=== PATIENT | male | born 1985 | race Caucasian/White ===

== ENCOUNTER 2017-10-19 16:07 | Emergency (ER) | payer MEDICAID ==
--- NOTE | 2017-10-19 17:31 | EDPHY ---
H & P Time Seen by Provider: 10/19/17 17:12 HPI/ROS: Chief complaint: Right ear pain with decreased hearing History of present illness: This is a 31-year-old male who presents to the emergency department reporting right ear pain with decreased hearing. He reports the onset of pain approximately day ago. Has been progressively worsening today. As the pain is worsened his hearing is decreased. He states prior to the onset of the ear pain he had cold symptoms although he feels like those have resolved. He denies other associated signs or symptoms including no discharge from the ear, no headache, no dizziness, no lightheadedness, no vertigo. Review of systems: 10 point review of systems was obtained and other than described above was negative Smoking Status: Never smoked Physical Exam: General Appearance: Alert and no distress. Eyes: Pupils equal and round no injection. ENT: Right tympanic membrane is erythematous and edematous, loss of normal anatomical structures. No evidence of perforation. Left tympanic membrane unremarkable. Hearing does appear to be decreased in the right ear. External auditory canals, external ears and surrounding soft tissue including over the mastoids are unremarkable. Nasopharynx is not injected. There is no rhinorrhea. Oropharynx is mildly injected. There is no edema. There is no exudate. There is no asymmetry. The uvula is midline. No elevation of the tongue. There is no hoarseness, no drooling, no trismus, no stridor. Respiratory: Chest is non tender, lungs are clear to auscultation. Cardiac: regular rate and rhythm Musculoskeletal: Neck is supple and non tender. Extremities have full range of motion and are non tender. Skin: No rashes or lesions. Neurological: Alert and oriented x4. Cranial nerves 2-12 grossly intact. Strength and sensation intact and symmetrical. Normal gait. Constitutional: Initial Vital Signs Temperature (C) 37.0 C 10/19/17 16:27 Heart Rate 73 10/19/17 16:27 Respiratory Rate 16 10/19/17 16:27 O2 Sat (%) 97 10/19/17 16:27 O2 Delivery Mode Room Air Allergies/Adverse Reactions: No Known Allergies Allergy (Unverified 10/19/17 16:27) Home Medications: Medication Instructions Recorded Amoxicillin Trihydrate [Amoxil] 500 mg PO TID 10 Days cap 10/19/17 MDM/Departure - [facility] ED Course/Re-evaluation: Patient seen under the supervision of my primary supervising physician Dr. Qiana Lundy. Patient presents for right ear pain and hearing loss. He appears to have an otitis media. No evidence of complications such as TM perforation or mastoiditis. Patient started on amoxicillin. He is referred to ENT and asked to arrange a close follow-up tomorrow. Home care is discussed. Return precautions are given. Differential Diagnosis: Included but not limited to otitis media, tympanic membrane perforation, otitis externa, labyrinthitis, BPPV, Meniere's - Depart Disposition: Home, Routine, Self-Care Clinical Impression: Otitis media Qualifiers: Otitis media type: unspecified Chronicity: acute Qualified Code(s): H66.90 - Otitis media, unspecified, unspecified ear Condition: Good Instructions: Ear Infection (ED) Additional Instructions: Follow-up with an Ears Nose and Throat doctor in 1-2 days for recheck Take antibiotics as prescribed until finished even feeling better Use ibuprofen 600 mg 3 times a day for the next 2-3 days for pain and swelling If symptoms worsen or new symptoms develop return immediately to the emergency room for recheck Prescriptions: Amoxicillin Trihydrate [Amoxil] 500 mg PO TID 10 Days cap Referrals: NONE *PRIMARY CARE P,. [Primary Care Provider] - As per Instructions Khadar Head PA [Physician Automation Specialist] - As per Instructions Craig Cody MD [Medical Doctor] - As per Instructions
== END 2017-10-19 17:37 | disposition home or self-care (01) ==
DX: H66.91 Otitis media, unspecified, right ear (principal)